=== PATIENT | male | born 1955 | race Caucasian/White ===

== ENCOUNTER 2017-08-18 05:25 | Day surgery (SDC) | payer OTHER ==
[~2017-08-18] VITALS: Ht 188 cm; Wt 104.3 kg
--- NOTE | ~2017-08-18 | O ---
[facility] [place] [address] OPERATIVE REPORT Name: RUBÉNRashmiNIRMAL Room #: 150-6 [facility]#: [id number] Admission: 08/18/17 Attend Phys: Nuha Rendon MD, Discharge: Date of : 53 Report #: [id number] THIS REPORT FOR: //name// CC: REJI physician/PCP Nuha Rendon DATE OF SERVICE: 08/18/2017 PREOPERATIVE DIAGNOSES: 1. Incarcerated umbilical hernia. 2. Rectus diastasis. POSTOPERATIVE DIAGNOSES: 1. Incarcerated umbilical hernia. 2. Rectus diastasis. PROCEDURES: 1. Laparoscopic robotic-assisted repair of an incarcerated umbilical hernia with mesh. 2. Laparoscopic robotic-assisted repair of rectus diastasis with mesh. SURGEON: Nuha Rendon M.D. GLASSINE MACHINE TENDER: ROWAN Beck. ANESTHESIA: General endotracheal anesthesia. ESTIMATED BLOOD LOSS: Minimal (less than 5 mL). COMPLICATIONS: None appreciated. SPECIMENS: None. INDICATIONS: The patient is a 62-year-old male who presented with an umbilical hernia that has been slowly enlarging causing discomfort as of late. On physical exam, it was incarcerated with what felt like omentum, but the patient also had evidence of a rectus diastasis. As such, the patient presents for definitive surgical management as delineated above today. DESCRIPTION OF PROCEDURE: After explaining the risks, benefits and alternatives of the procedure with the patient in detail and obtaining consent, the patient was brought to the operating room and placed supine on the operating room table. After conducting a thorough timeout procedure verifying correct patient and procedure, the patient was given general endotracheal anesthesia. Once adequate anesthesia was obtained, his SCDs were hooked up to pneumatic compression device. He was given a preoperative dose of antibiotics in line with the [facility] [address] [place] [address] OPERATIVE REPORT Name: KELLEYNIRMAL Room #: 150-6 [facility]#: [id number] Admission: 08/18/17 Attend Phys: Nuha Rendno MD, Discharge: Date of : 53 Report #: [id number] protocol. The patient's abdomen was prepped and draped in a standard surgical sterile fashion. 5 mL of 0.5% Marcaine with epinephrine were used to anesthetize the skin in the left upper quadrant. A #15 bladed scalpel was used to create a small skin jessica at this location. A 5 mm Visiport was placed over 0 degree 5 mm laparoscope and was introduced through this incision site. Once intra-abdominal placement was verified visually, the obturator for the trocar and laparoscope were both removed and the abdomen was insufflated to 15 mmHg using carbon dioxide gas. The laparoscope was changed to a 5-mm 30-degree laparoscope, which was reintroduced through this trocar. The entire abdomen was evaluated to ensure no injury upon entry. I immediately identified a band of omentum incarcerated within his umbilical hernia. The left lateral abdomen was devoid of adhesions and as such, I was able to place a 12 mm trocar lateral of the umbilicus in the anterior axillary line and an 8 mm robotic trocar in left lower quadrant. Both additional trocars were placed under direct vision after anesthetizing the skin at each location with 5 mL of 0.5% Marcaine with epinephrine. I had created appropriately sized skin nicks using #15 bladed scalpel. Laparoscope was then placed with a 12 mm port and initially placed 5 mm port was upsized to an 8 mm robotic trocar under direct vision. The laparoscope was now removed. The Tellme SI robot was now docked in standard fashion using a 30-degree up scope and I proceeded to break scrub and sit at the robotic terminal and began the operative portion of the procedure. Using a robotic grasper and scissors with electrocautery, I proceeded to reduce the omentum as well as skeletonized posterior aspect of the anterior abdominal wall from the suprapubic location cephalad. This allowed me to take down all the preperitoneal fat that was densely adherent to the abdominal wall leaving a vascularized fat pad residing in the right upper quadrant at this juncture. Through the course of this, I had skeletonized the fascial defect from the umbilical hernia, which measured approximately 2 x 2 cm in dimension. The patient's rectus diastasis was approximately 5 cm wide down the midline from the subxiphoid location inferior. At this juncture, I proceeded to place four separate sutures of #1 absorbable Stratafix asymmetric into the abdomen under direct vision to ensure no bowel injury. These were placed in the right upper quadrant overlying the liver for use. The robot arm for the left upper quadrant trocar that had been undocked to place the sutures into the abdomen was now redocked and both instruments were exchanged to SutureCut needle drivers. I now utilized to one of the sutures to close the umbilical hernia defect in standard running fashion. Once this was sutured closed, I proceeded to use the additional sutures to plicate the rectus muscles from subxyphoid location inferiorly in a standard running fashion to reapproximate them down the midline and repair the rectus diastasis defect. At the completion of the procedure, the patient's rectus muscles were plicated tightly down the midline and it should be noted this was done after reducing the insufflation pressure to 8 mmHg. Photodocumentation of this repair was taken and provided to the patient and the permanent medical record. I now selected a piece of Ventralight ST mesh on the echo positioning system that measured 15 x 25 cm in dimension. This was rolled up and placed into the abdomen after undocking the robot all together and [facility] [address] [place] [address] OPERATIVE REPORT Name: KELLEYNIRMAL Jay [facility] #: 150[facility]6 [facility] [id number] Admission: 08/18/17 Attend Phys: Nuha Rendon MD, Discharge: Date of : 53 Report #: [id number] utilizing a 5-mm 30-degree laparoscope. The Carl-Radha suture passer device was driven directly through the anterior abdominal wall at the mid portion of the repair of the rectus diastasis which resulted approximately 3 cm cephalad to the umbilicus. This was driven directly through the anterior abdominal wall where the end eyelet of the insufflation tubing for the echo positioning system was grasped, pulled up through the abdominal wall, cut off and passed off the field. The syringe insufflator was now attached to the balloon insufflation tubing, and the echo scaffolding was fully inflated. This was held up against the posterior aspect of the anterior abdominal wall and was tagged with hemostat externally at the skin level to hold it in close approximation with the abdominal wall throughout. This gave us at least 5 cm overlap in all directions outside of the suture repair. I now used the secure strap absorbable fixation device to circumferentially fix the mesh into position at 1 cm intervals around the periphery of the mesh as well as having placed numerous tacks throughout the innermost portion of the mesh as well to hold the entire mesh in close approximation with the anterior abdominal wall. The balloon insufflation tubing was now elevated and cut externally at the skin level with suture scissors allowing the scaffolding to deflate. This was then removed via the 12 mm trocar under direct vision. I now placed a fascial closing suture around the 12 mm fascial incision using 0 PDS suture on a Carl-Radha needle under direct vision. This was not tied down at this juncture, but was tagged with a hemostat and trocars were placed under direct vision. Laparoscope was placed back to the 12 mm port, and I proceeded to reperitonealize the preperitoneal fat by tacking it into position overlying the mesh with the SecureStrap absorbable fixation device. This was done as it was vascularized and would hopefully prevent even further adhesions in addition to the Seprafilm technology from the mesh. Photodocumentation of the mesh repair was taken and provided to the patient and the permanent medical record. We had complete hemostasis. No evidence of any defects or injury. All needles had been removed under direct vision and passed off the field. The laparoscope was placed back in the left upper quadrant trocar and the 12 mm port was removed and the 0 PDS suture was tied down under direct vision to ensure I did not catch a loop of bowel or omentum in the suture repair. One final evaluation showed no further evidence of pathology and excellent orientation of the mesh repair of both the umbilical hernia and diastasis repairs. The abdomen was fully desufflated. All remaining trocars were removed under direct vision. A 4-0 Monocryl was used in a standard subcuticular fashion for all skin incisions and Dermabond glue was applied to all skin wounds. At the end of the procedure, all instrument, needle and sponge counts were correct. The patient tolerated the procedure without incident, was awakened in the operating room and transitioned to the recovery room in stable condition with no apparent complications. <ELECTRONICALLY SIGNED> By: Nuha Rendon MD, FACS 08/20/17 [id number] Nuha Rendon MD, LINDA /nt
--- NOTE | ~2017-08-18 | EKG ---
[address] [place] [address] ELECTROCARDIOGRAM REPORT Name: RUBÉNRashmiNIRMAL Room #: 150-6 [facility]#: [id number] Admission: 08/18/17 Attend Phys: Nuha Rendon MD, Discharge: Date of : 53 Report #: [id number] THIS REPORT FOR: //name// [facility] Test Date: 2017-08-18 Test Time: 07:43:05 Pat Name: NIRMAL BENSON Department: Room: 150 6 Gender: M Staffing Administrator: MAYA : 1955 Requested By: Nuha Rendon Order Number: [id number] MD: Uli Tiwari Measurements Intervals [place] Rate: 67 P: 66 LA: 196 QRS: -54 QRSD: 100 T: 29 QT: 401 QTc: 424 Interpretive Statements Sinus rhythm LAD, consider left anterior fascicular block Abnormal R-wave progression, early transition No previous ECG available for comparison Electronically Signed On 08-18-2017 8:46:38 INSOLE TAPER by Uli Tiwari [email or web address] <ELECTRONICALLY SIGNED> By: Uli Tiwari MD, [facility] 08/18/17 0846 2 Uli Tiwari MD, [facility] /EPI
[~2017-08-18 05:25] MED LIST: ASPIR 8181 MG PO; CENTRUM SILVER1 EAC4 PO; FLOMAX0.4 MG PO; IBUPROFEN 200200 M1 PO; RED YEAST RICE600 M1 PO
[2017-08-18 08:21] VITALS: BP 136/79
[2017-08-18] MEDS ORDERED: NEURONTIN 300300 M1 PO (13:52)
[2017-08-18] MEDS ORDERED: PERCOCET 7.5-31 EACH PO (13:52)
[2017-08-18] MEDS ORDERED: SENOKOT-S TABL1 EACH PO (13:52)
[2017-08-18 14:29] VITALS: BP 136/79
== END 2017-08-18 16:37 | disposition home or self-care (01) ==
LOC: OR 05:25 → TBA 05:25 → OR 11:40
DX: K42.0 Umbilical hernia with obstruction, without gangrene (principal); F32.9 Major depressive disorder, single episode, unspecified; F41.9 Anxiety disorder, unspecified; Z87.891 Personal history of nicotine dependence; N40.0 Benign prostatic hyperplasia without lower urinary tract symptoms; Z98.890 Other specified postprocedural states
CPT/HCPCS: 49000; 50010; 50101; 50249; 50386; 50555; 50558; 50962; 50981; 50984; 52265; 54022; 54118; 56525; 56526; 56641; 57092; 62110; 62900; 70005